=== PATIENT | female | born 1970 | race Two or more races ===

== ENCOUNTER 2017-11-08 02:38 | Emergency (ER) | payer MEDICAID ==
[~2017-11-08] VITALS: Ht 160 cm; Wt 63.0 kg
[2017-11-08] MEDS ORDERED: LORAZEPAM 1 MG TABLET PO ONE (03:00)
--- NOTE | 2017-11-08 03:06 | NUR ---
Pt BIBSELF BY , FROM HOME. C/O HIGH BP AND EPIGASTRIC PAIN. Pt IS A/OX4, VERBAL, ABLE TO MAKE NEEDS KNOWN. NO S/S OF ACUTE DISTRESS OR SOB NOTED. SEEN BY
[2017-11-08] MEDS ORDERED: LORAZEPAM 1 MG TABLET ONE (03:13)
--- NOTE | 2017-11-08 03:14 | NUR ---
ATIVAN 1MG PO GIVEN TO Pt PER MD ORDER
--- NOTE | 2017-11-08 04:15 | NUR ---
Patient discharged to home in stable condition. Written and verbal after care instructions given. Patient verbalizes understanding of instruction.Patient able to walk accompanied by ,denies any dizziness,steady gait.Not in any distress ,not in any pain.
[2017-11-08 04:30] VITALS: BP 159/112
== END 2017-11-08 04:15 | disposition home or self-care (01) ==
LOC: ER 02:39
DX: F41.9 Anxiety disorder, unspecified (principal); I10 Essential (primary) hypertension; Z98.890 Other specified postprocedural states; Z88.0 Allergy status to penicillin
CPT/HCPCS: 99284; A4606; Z7610

== ENCOUNTER 2018-05-13 03:30 | Emergency (ER) | payer MEDICAID ==
[~2018-05-13] VITALS: Ht 154.9 cm; Wt 61.2 kg
[2018-05-13] MEDS ORDERED: HYDROCODONE/APAP 10/325MG 1 EA TABLET ONE (04:51)
[2018-05-13] MEDS ORDERED: CLINDAMYCIN HCL 150 MG CAPSULE PO ONE ×2 (04:52→05:00)
[2018-05-13] MEDS ORDERED: AMLODIPINE BESYLATE 5 MG TABLET ONE (04:52)
[2018-05-13 04:56] VITALS: BP 187/113
[2018-05-13] MEDS ORDERED: AMLODIPINE BESYLATE 5 MG TABLET PO ONE (05:00)
[2018-05-13] MEDS ORDERED: HYDROCODONE/APAP 10/325MG 1 EA TABLET PO ONE (05:00)
--- NOTE | 2018-05-13 05:27 | NUR ---
ER AWARE OF PT BP.
== END 2018-05-13 05:29 | disposition home or self-care (01) ==
LOC: ER 03:34
DX: K08.89 Other specified disorders of teeth and supporting structures (principal); I10 Essential (primary) hypertension; N63.0 Unspecified lump in unspecified breast; Z98.890 Other specified postprocedural states; Z88.0 Allergy status to penicillin

== ENCOUNTER 2022-05-12 01:18 | Emergency (ER) | payer MEDICAID, OTHER ==
[~2022-05-12] VITALS: Ht 160 cm; Wt 64.4 kg
--- NOTE | 2022-05-12 01:50 | NUR ---
PT BIBFAMILY C/O HIGH BP 220/116 AT MIDNIGHT. PT AAOX4 BREATHING EVENLY AND UNLABORED. PT STATES THAT SHE TOOK LISINOPRIL WHEN SHE WOKE UP AND AFTER STARTED TO FEEL HER FEET FEEL LESS TENSE. PT DENIES HEADACHE, DIZZINESS, OR BLURRED VISION. PT ATTACHED TO MONITOR AND POX. MD AT BEDSIDE.
--- NOTE | 2022-05-12 02:16 | NUR ---
LAC 20G INITIATED. BLOOD DRAWN AND SENT TO LAB
[2022-05-12] MEDS ORDERED: hydrALAZINE HCL IV 20 MG VIAL ONE (02:17)
[2022-05-12] MEDS ORDERED: hydrALAZINE HCL IV 20 MG VIAL IV ONE (02:30)
--- NOTE | 2022-05-12 02:42 | NUR ---
TAKEN TO RADIOLOGY
[2022-05-12 02:43] LABS: BASOPHILS % (AUTO) 0.2 % (0.0-2.0); EOSINOPHILS % (AUTO) 3.5 % (0.0-6.0); HEMATOCRIT 39 % (33-45); HEMOGLOBIN 13.2 g/dL (11.5-14.8); LYMPHOCYTES # (AUTO) 2.6 K/uL (0.8-4.8); LYMPHOCYTES % (AUTO) 31.6 % (20.0-44.0); MEAN CORPUSCULAR HGB CONC 34 g/dl (31.0-36.0); MEAN CORPUSCULAR VOLUME 87 fL (82-100); MONOCYTES # (AUTO) 0.5 K/uL (0.1-1.30); NEUTROPHILS # (AUTO) 4.8 K/uL (1.8-8.9); NEUTROPHILS % (AUTO) 58.7 % (43.0-81.0); PLATELET COUNT (AUTO) 341 K/uL (150-450); RED BLOOD CELL COUNT(AUTO) 4.53 MIL/uL (4.0-5.2); WHITE BLOOD COUNT (AUTO) 8.2 K/uL (4.3-11.0)
--- NOTE | 2022-05-12 02:53 | NUR ---
RETURNED FROM RAD
[2022-05-12 03:00] LABS: ALANINE AMINOTRANSFERASE 19 U/L (12-78); ALBUMIN 3.8 g/dL (3.4-5.0); ALKALINE PHOSPHATASE 128 U/L (46-116); ASPARTATE AMINOTRANSFERASE 22 U/L (15-37); BILIRUBIN,DIRECT 0.1 mg/dL (0.0-0.2); BILIRUBIN,TOTAL 0.2 mg/dL (0.2-1.0); CALCIUM, SERUM 8.8 mg/dL (8.5-10.1); CARBON DIOXIDE 29 mmol/L (21-32); CHLORIDE 99 mmol/L (98-107); CREATININE 0.7 mg/dL (0.6-1.3); GLUCOSE 133 mg/dL (74-106); POTASSIUM 3.3 mmol/L (3.5-5.1); SODIUM SERUM 134 mmol/L (136-145); TOTAL PROTEIN, SERUM 8.1 g/dL (6.4-8.2); UREA NITROGEN, BLOOD 12 mg/dL (7-18)
--- NOTE | 2022-05-12 04:17 | NUR ---
LAB AT BEDSIDE
--- NOTE | 2022-05-12 05:51 | NUR ---
Patient discharged to home in stable condition. Written and verbal after care instructions given. Patient verbalizes understanding of instruction. IV removed. Catheter intact and site benign. Pressure and 4x4 applied to site. No bleeding noted. PT ambulatory with a steady gait
[2022-05-12 06:01] VITALS: BP 160/94
[2022-05-12] MEDS ORDERED: CALC-818 PO (17:38)
[2022-05-12] MEDS ORDERED: FAMO20TA8 PO (17:38)
== END 2022-05-12 05:51 | disposition home or self-care (01) ==
LOC: ER 01:19
DX: I16.0 Hypertensive urgency (principal); R42 Dizziness and giddiness; I10 Essential (primary) hypertension; E78.5 Hyperlipidemia, unspecified; Z88.0 Allergy status to penicillin
CPT/HCPCS: 99285; 96374; 70450; 71045; 93005; 85025; 80048; 80076; 36415; 84484 ×2; 85730; J0360

== ENCOUNTER 2022-05-12 13:52 | Emergency (ER) | payer OTHER ==
[~2022-05-12] VITALS: Ht 162.6 cm; Wt 68.0 kg
--- NOTE | 2022-05-12 14:10 | NUR ---
Bibs w/ family, states, "Was seen here recently, Dx'd w/HTN. Given meds--went to clinic BP still high also feel Dizzy,Nauseous. Gassy. Acid Reflux". To er bed 11.
--- NOTE | 2022-05-12 14:30 | NUR ---
pt seen by dr grant at bedside
[2022-05-12] MEDS ORDERED: FAMOTIDINE/PF INJ 20 MG/2 ML VIAL IV ONE ×2 (14:36→15:00)
[2022-05-12] MEDS ORDERED: ONDANSETRON HCL/PF 4 MG/2 ML VIAL ONE (14:36)
[2022-05-12] MEDS ORDERED: MAG HYDROX/AL HYDROX/SIMETH 30 ML UDC ONE (14:36)
--- NOTE | 2022-05-12 14:50 | NUR ---
lac #20, blood drawn and collected by phleb at bedside
[2022-05-12] MEDS ORDERED: ONDANSETRON HCL/PF - ER 4 MG/2 ML VIAL IV ONE (15:00)
[2022-05-12] MEDS ORDERED: IV NS 0.9% 1,000 ML IV ONE (15:00)
[2022-05-12] MEDS ORDERED: MAG HYDROX/AL HYDROX/SIMETH 30 ML UDC PO ONE (15:00)
[2022-05-12 15:22] LABS: BASOPHILS % (AUTO) 0.1 % (0.0-2.0); HEMATOCRIT 40 % (33-45); HEMOGLOBIN 13.6 g/dL (11.5-14.8); LYMPHOCYTES # (AUTO) 1.3 K/uL (0.8-4.8); LYMPHOCYTES % (AUTO) 12.1 % (20.0-44.0); MEAN CORPUSCULAR HGB CONC 34 g/dl (31.0-36.0); MEAN CORPUSCULAR VOLUME 86 fL (82-100); MONOCYTES # (AUTO) 0.4 K/uL (0.1-1.30); MONOCYTES % (AUTO) 3.3 % (2.0-12.0); NEUTROPHILS # (AUTO) 9.4 K/uL (1.8-8.9); NEUTROPHILS % (AUTO) 84.5 % (43.0-81.0); WHITE BLOOD COUNT (AUTO) 11.2 K/uL (4.3-11.0)
[2022-05-12 15:39] LABS: CREATININE 0.7 mg/dL (0.6-1.3); POTASSIUM 3.2 mmol/L (3.5-5.1)
[2022-05-12 15:52] LABS: ALBUMIN 4.2 g/dL (3.4-5.0); BILIRUBIN,DIRECT 0.1 mg/dL (0.0-0.2); BILIRUBIN,TOTAL 0.5 mg/dL (0.2-1.0); TOTAL PROTEIN, SERUM 8.5 g/dL (6.4-8.2)
[2022-05-12] MEDS ORDERED: POTASSIUM CHLORIDE 20 MEQ TAB.PRT.SR PO ONE ×2 (16:00→16:13)
[2022-05-12 16:30] LABS: BILIRUBIN,URINE NEGATIVE (NEGATIVE); COLOR,URINE YELLOW (YELLOW); LEUKOCYTE ESTERASE ,URINE NEGATIVE (NEGATIVE); NITRITE, URINE NEGATIVE (NEGATIVE); PROTEIN,URINE 3+ mg/dl (NEGATIVE); UGLUCOSE NEGATIVE (NEGATIVE); UROBILINOGEN,URINE 0.2 EU/dL (0.2)
[2022-05-12] MEDS ORDERED: FAMO20TA8 PO (17:38)
[2022-05-12] MEDS ORDERED: CALC-818 PO (17:38)
[2022-05-12 17:49] LABS: BACTERIA,URINE None seen /HPF (None Seen); RBC,URINE 51-80 /HPF (0-2); WBC,URINE 0-2 /HPF (0-3)
[2022-05-12 17:50] LABS: SQUAMOUS EPITHELIAL CELL,UR 0-2 /HPF (None Seen)
--- NOTE | 2022-05-12 19:04 | NUR ---
IV removed. Catheter intact and site benign. Pressure and 4x4 applied to site. No bleeding noted.
[2022-05-12 19:05] VITALS: BP 138/90
--- NOTE | 2022-05-12 19:05 | NUR ---
Patient discharged to home in stable condition. Written and verbal after care instructions given. Patient verbalizes understanding of instruction.
[2022-05-12 19:38] LABS: PLATELET COUNT (AUTO) 359 K/uL (150-450)
== END 2022-05-12 19:05 | disposition home or self-care (01) ==
LOC: ER 13:55
DX: R10.13 Epigastric pain (principal); I10 Essential (primary) hypertension; E78.5 Hyperlipidemia, unspecified; Z98.890 Other specified postprocedural states; Z79.899 Other long term (current) drug therapy
CPT/HCPCS: 99285; 74176; 96374; 71045; 96361; 96375; 93005; 85025; 80048; 80076; 83735; 81001; 36415; 84484 ×2; 83880; J3490; J2405; J7030

== ENCOUNTER 2024-04-20 02:08 | Emergency (ER) | payer OTHER ==
[~2024-04-20] VITALS: Ht 157.5 cm; Wt 70.8 kg
[~2024-04-20 02:08] MED LIST: CALC-818 PO; FAMO20TA8 PO
[2024-04-20] MEDS ORDERED: hydrALAZINE HCL IV 20 MG VIAL ONE ×2 (02:42→03:28)
[2024-04-20] MEDS ORDERED: MECLIZINE HCL 25 MG TABLET ONE (02:42)
[2024-04-20] MEDS: hydrALAZINE HCL IV 20 MG VIAL IV ONE ×2 (02:46→03:30)
[2024-04-20] MEDS: MECLIZINE HCL 12.5 MG TABLET PO ONE (02:46)
[2024-04-20 02:47] LABS: BASOPHILS % (AUTO) 0.4 % (0.0-2.0); EOSINOPHILS # (AUTO) 0.1 K/uL (0.0-0.7); EOSINOPHILS % (AUTO) 0.8 % (0.0-6.0); HEMATOCRIT 37 % (33-45); HEMOGLOBIN 12.9 g/dL (11.5-14.8); LYMPHOCYTES # (AUTO) 1.7 K/uL (0.8-4.8); LYMPHOCYTES % (AUTO) 17.4 % (20.0-44.0); MEAN CORPUSCULAR HEMOGLOBIN 30 PG (26.0-33.0); MEAN CORPUSCULAR HGB CONC 35 g/dl (31.0-36.0); MEAN CORPUSCULAR VOLUME 86 fL (82-100); MONOCYTES # (AUTO) 0.5 K/uL (0.1-1.30); MONOCYTES % (AUTO) 5.2 % (2.0-12.0); NEUTROPHILS # (AUTO) 7.4 K/uL (1.8-8.9); NEUTROPHILS % (AUTO) 76.2 % (43.0-81.0); PLATELET COUNT (AUTO) 300 K/uL (150-450); RED BLOOD CELL COUNT(AUTO) 4.27 MIL/uL (4.0-5.2); RED CELL DISTRIBUTION WIDTH 14.1 % (11.5-15.0); WHITE BLOOD COUNT (AUTO) 9.7 K/uL (4.3-11.0)
[2024-04-20 03:09] LABS: CALCIUM, SERUM 8.5 mg/dL (8.5-10.1); CREATININE 0.7 mg/dL (0.6-1.3); POTASSIUM 3.4 mmol/L (3.5-5.1)
[2024-04-20] MEDS ORDERED: ONDANSETRON HCL/PF 4 MG/2 ML VIAL ONE (04:13)
[2024-04-20] MEDS: ONDANSETRON HCL/PF - ER 4 MG/2 ML VIAL IV ONE (04:16)
[2024-04-20 07:03] VITALS: BP 154/91; TEMP 98.2; O2SAT 96
== END 2024-04-20 07:03 | disposition home or self-care (01) ==
LOC: ER 02:26
DX: R42 Dizziness and giddiness (principal); H53.8 Other visual disturbances; R51.9 Headache, unspecified; I10 Essential (primary) hypertension; K21.9 Gastro-esophageal reflux disease without esophagitis; Z88.0 Allergy status to penicillin
CPT/HCPCS: 99285; 96374; 70450; 71045; 96375; 93005; 96376; 85025; 80048; 36415; J8597; J0360 ×2; J2405 ×2